=== PATIENT | female | born 2000 | race Caucasian/White ===

== ENCOUNTER 2018-01-11 20:39 | Emergency (ER) | payer OTHER ==
[2018-01-11] MEDS ORDERED: LIDOCAINE 1% MPF 5 ML VIAL ONE (22:47)
[2018-01-11 23:05] LABS: Absolute Lymphocytes (CBC) 1.7 K/uL (0.7-4.9); Absolute Monocytes 0.6 K/uL (0.1-1.3); Absolute Neutrophil 4.7 K/uL (1.8-8.0); Basophils % 0.3 % (0-1.3); Eosinophils % 0.6 % (0-4.4); Hematocrit 36.9 % (36.0-45.0); MCH 31.3 pg (27.0-35.0); MCV 89.8 fL (80-100); MPV 8.9 fL (7.6-11.3); Monocytes % 8.8 % (3.3-12.3); RBC Red Blood Cell Count 4.11 M/uL (3.86-4.86)
[2018-01-11 23:08] LABS: Bicarbonate 25 mEq/L (21-31); Glucose Level 87 mg/dL (65-120); Potassium 3.5 mEq/L (3.6-5.0); Sodium Level 135 mEq/L (135-145)
[2018-01-11 23:09] LABS: BUN Blood Urea Nitrogen 12 mg/dL (6-20)
--- NOTE | 2018-01-11 23:58 | ER ---
Nurse's Notes [facility] Name: Aurora Narayanan Age: 17 yrs Sex: Female : 2000 Arrival Date: 01/11/2018 Time: 20:43 Bed 16 Private MD: Diagnosis: Cellulitis of right lower limb Presentation: 01/11 20:58 Presenting complaint: Patient states: she has right lower leg pain since Saturday had an bb X-ray which was negative and is scheduled for an MRI but swelling is getting worse and it is getting more painful. Transition of care: patient was not received from another setting of care. Onset of symptoms was January 06, 2018. Risk Assessment: Do you want to hurt yourself or someone else? Patient reports no desire to harm self or others. Initial Sepsis Screen: Does the patient meet any 2 criteria? No. Patient's initial sepsis screen is negative. Does the patient have a suspected source of infection? No. Patient's initial sepsis screen is negative. Care prior to arrival: None. 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 - Social history:: Smoking status: Patient/guardian denies using tobacco, Patient/guardian denies using alcohol, street drugs. - Ebola Screening: : No symptoms or risks identified at this time. Screenin:01 Abuse screen: Denies threats or abuse. Nutritional screening: No deficits noted. mb3 Tuberculosis screening: No symptoms or risk factors identified. Fall Risk None identified. Assessment: 21:23 General: Appears in no apparent distress. comfortable, well groomed, Behavior is calm, bs1 cooperative, appropriate for age. Pain: Complains of pain in right escudero Pain does not radiate. Pain currently is 10 out of 10 on a pain scale. Neuro: No deficits noted. Cardiovascular: No deficits noted. Respiratory: No deficits noted. Airway is patent Respiratory effort is even, unlabored, Respiratory pattern is regular, symmetrical. GI: No deficits noted. No signs and/or symptoms were reported involving the gastrointestinal system. : No deficits noted. No signs and/or symptoms were reported regarding the genitourinary system. Musculoskeletal: Swelling present in right escudero Tenderness present in right escudero Reports pain in right escudero. 22:30 Reassessment: No changes from previously documented assessment. Patient and/or family bs1 updated on plan of care and expected duration. Pain level reassessed. Patient is alert, oriented x 3, equal unlabored respirations, skin warm/dry/pink. 23:30 Reassessment: Patient appears in no apparent distress at this time. Patient and/or bs1 family updated on plan of care and expected duration. Pain level reassessed. Patient is alert, oriented x 3, equal unlabored respirations, skin warm/dry/pink. 23:55 Reassessment: PA at bedside, performing I\T\D. bs1 01/12 00:05 Reassessment: Wrapped patient right leg with gauze and kerlix, patient tolerated. bs1 Vital Signs: 01/11 21:00 BP 107 / 74; Pulse 77; Resp 16 S; Temp 98.8(O); Pulse Ox 100% on R/A; Weight 63.5 kg bb (R); Height 5 ft. 5 in. (165.10 cm) (R); Pain 10/10; 23:01 BP 122 / 84; Pulse 77; Resp 14; Pulse Ox 97% on R/A; mb3 01/12 00:00 BP 114 / 80; Pulse 72; Resp 16; Temp 98.6(O); Pulse Ox 100% on R/A; Pain 0/10; bs1 01/11 21:00 Body Mass Index 23.30 (63.50 kg, 165.10 cm) bb ED Course: 01/11 20:43 Patient arrived in ED. es 20:59 Anirudh Szymanski PA is PHCP. jmm 20:59 Leighton Collazo MD is Attending Physician. [facility] [place] [facility] 21:00 Triage completed. bb 21:00 Arm band placed on Patient placed in an exam room, on a stretcher, on pulse oximetry. bb Family accompanied patient. 21:23 Aurora Woods, EAMON is Primary Nurse. bs1 22:02 Aurora Woods RN is Primary Nurse. bs1 22:03 Primary Nurse role handed off by Aurora Woods, RN mb3 22:03 German Matute, RN is Primary Nurse. mb3 22:18 Ultrasound completed. Patient tolerated well. Notified GENERAL HELPER/THI cutris. sg3 22:45 Inserted saline lock: 22 gauge in left antecubital area, using aseptic technique. Blood mb3 collected. 23:01 Patient has correct armband on for positive identification. Bed in low position. Call mb3 light in reach. 01/12 00:09 No provider procedures requiring assistance completed. IV discontinued, bleeding bs1 controlled, No redness/swelling at site. Pressure dressing applied. Administered Medications: 01/11 23:55 Drug: Lidocaine (1 %) 20 ml {Note: administered by THI Curtis.} Volume: 20 ml; Route: bs1 Infiltration; 01/12 00:13 Follow up: Response: No adverse reaction bs1 Outcome: 01/11 23:57 Discharge ordered by MD. fajardo 01/12 00:09 Discharged to home ambulatory, with family. bs1 Condition: stable Discharge instructions given to patient, Instructed on discharge instructions, follow up and referral plans. medication usage, Demonstrated understanding of instructions, follow-up care, medications, Prescriptions given X 2. 00:13 Patient left the ED. bs1 Signatures: Dispatcher [employer] EDMI Anirudh Szymanski PA PA jmm Salyer, Edna es Ballard, Brenda, RN RN Adela Rodriguez 3 Aurora Woods, RN RN bs1 German Matute, RN RN mb3 Corrections: (The following items were deleted from the chart) 01/11 23:13 23:13 In radiology for Extremity Venous Uni Ltd+US.SHAHLA. [place] [id number] 01/12 00:12 01/11 23:55 Reassessment: PA at bedside, I\T\D bs1 bs1
--- NOTE | 2018-01-11 23:58 | EDPHYS ---
Physician Documentation [facility] Name: Aurora Narayanan Age: 17 yrs Sex: Female : 2000 Arrival Date: 01/11/2018 Time: 20:43 Bed 16 Private MD: ED Physician Leighton Collazo HPI: 01/11 21:51 This 17 yrs old Female presents to ER via Ambulatory with complaints of Leg jmm Pain. 21:51 The patient presents with pain, that is acute. The complaints affect the right escudero and jmm right leg. Onset: The symptoms/episode began/occurred today. Patient complains of right lower leg pain worsening today. Patient states she injured the right lower leg this past March. 2 weeks ago the pain returned. Patient denies fever. Denies SOB. . [employer]: 21:00 LMP 12/11/2017 bb Historical: - Allergies: 21:00 No Known Allergies; bb - Home Meds: 21:00 control [Active]; bb - PMHx: 21:00 None; bb - PSHx: 21:00 None; bb - Immunization history:: Adult Immunizations up to date. - Social history:: Smoking status: Patient/guardian denies using tobacco, Patient/guardian denies using alcohol, street drugs. - Ebola Screening: : No symptoms or risks identified at this time. ROS: 21:51 Constitutional: Negative for fever, chills, and weight loss, Cardiovascular: Negative jmm for chest pain, palpitations, and edema, Respiratory: Negative for shortness of breath, cough, wheezing, and pleuritic chest pain, Abdomen/GI: Negative for abdominal pain, nausea, vomiting, diarrhea, and constipation, Back: Negative for injury and pain, : Negative for injury, bleeding, discharge, and swelling. 21:51 MS/extremity: Positive for pain, swelling. 21:51 Skin: Positive for redness. 21:51 Neuro: Negative for weakness. 21:51 All other systems are negative. Exam: 21:51 Head/Face: atraumatic. Cardiovascular: Regular rate and rhythm. No gallops, murmurs, jmm or rubs. Full/Equal distal pulses. Respiratory: Lungs have equal breath sounds bilaterally, clear to auscultation. No rales, rhonchi or wheezes noted. No increased work of breathing, no retractions or nasal flaring. 21:51 Constitutional: The patient appears in no acute distress, alert, awake. 21:51 Musculoskeletal/extremity: swelling noted to the right lower leg. Full dorsalis pedis pulse, NVI. 21:51 Skin: Appearance: Color: normal in color. 21:51 Skin: erythema noted to the right lower leg. 21:51 Neuro: Orientation: is normal, Mentation: is normal, Memory: is normal. Vital Signs: 21:00 BP 107 / 74; Pulse 77; Resp 16 S; Temp 98.8(O); Pulse Ox 100% on R/A; Weight 63.5 kg bb (R); Height 5 ft. 5 in. (165.10 cm) (R); Pain 10/10; 23:01 BP 122 / 84; Pulse 77; Resp 14; Pulse Ox 97% on R/A; mb3 01/12 00:00 BP 114 / 80; Pulse 72; Resp 16; Temp 98.6(O); Pulse Ox 100% on R/A; Pain 0/10; bs1 01/11 21:00 Body Mass Index 23.30 (63.50 kg, 165.10 cm) bb MDM: 01/11 21:08 Patient medically screened. [facility] 23:56 Data reviewed: vital signs, nurses notes, lab test result(s), radiologic studies, [facility] ultrasound. Counseling: I had a detailed discussion with the patient and/or guardian regarding: the historical points, exam findings, and any diagnostic results supporting the discharge/admit diagnosis, lab results, radiology results, to return to the emergency department if symptoms worsen or persist or if there are any questions or concerns that arise at home. 23:56 ED course: The areas of induration were aspirated using an 18 gauge need. No purulent [facility] drainage expressed. PE is concerning for cellulitis. . 01/11 21:50 Order name: CBC with Diff; Complete Time: 23:17 [facility] 01/11 21:50 Order name: BMP; Complete Time: 23:17 [facility] 01/11 21:50 Order name: US Extremity Venous Unilateral Ltd [facility] Administered Medications: 23:55 Drug: Lidocaine (1 %) 20 ml {Note: administered by THI Oleary.} Volume: 20 ml; Route: bs1 Infiltration; 01/12 00:13 Follow up: Response: No adverse reaction bs1 Disposition: 01/11/18 23:57 Discharged to Home. Impression: Cellulitis of right lower limb. - Condition is Stable. - Discharge Instructions: Cellulitis. - Prescriptions for Cephalexin 500 mg Oral Capsule - take 1 capsule by ORAL route every 6 hours for 10 days; 40 capsule. Bactrim DS 800- 160 mg Oral Tablet - take 1 tablet by ORAL route every 12 hours for 10 days; 20 tablet. - Medication Reconciliation Form, Thank You Letter, Antibiotic Education, Prescription Opioid Use form. - Follow up: Private Physician; When: 2 - 3 days; Reason: Continuance of care. Addendum: 01/13/2018 10:07 Co-signature as Attending Physician, Leighton Collazo MD I agree with the assessment and c agosto plan of care. Signatures: Dispatcher [employer] EDLeighton Jaramillo MD MD cha Mickail, Joel, PA PA jmm Ballard, Brenda, RN RN Aurora Morrow RN RN bs1 Corrections: (The following items were deleted from the chart) 01/12 00:13 01/11 23:57 01/11/2018 23:57 Discharged to Home. Impression: Cellulitis of right lower bs1 limb. Condition is Stable. Forms are Medication Reconciliation Form, Thank You Letter, Antibiotic Education, Prescription Opioid Use. Follow up: Private Physician; When: 2 - 3 days; Reason: Continuance of care. tana
--- NOTE | 2018-01-12 12:31 | RAD REPORT ---
EXAM DESCRIPTION: VAS - Extremity Venous Uni Ltd - 01/11/2018 11:13 pm CLINICAL HISTORY: pain, swelling Leg swelling and edema. COMPARISON: No comparisons FINDINGS: Right lower extremity venous system was interrogated with Doppler technique. Normal flow, compressibility and augmentation was noted. There is no DVT present.Interstitial fluid is seen in the area of swelling in the right medial calf. IMPRESSION: No evidence of right lower extremity deep venous thrombosis.
== END 2018-01-12 00:13 | disposition home or self-care (01) ==
LOC: ER 20:39
DX: L03.115 Cellulitis of right lower limb (principal)
CPT/HCPCS: 36415; 80048; 85025; 93971; 99284